=== PATIENT | female | born 1975 | race American Indian/Alaskan Native ===

== ENCOUNTER 2019-03-08 05:32 | Emergency (ER) | payer SELFPAY ==
--- NOTE | 2019-03-08 09:05 | Emergency Department Report ---
ED Back Pain/Injury HPI - General Chief Complaint: Back Pain/Injury Stated Complaint: MAJOR BACK PAIN/PAIN UPPER LEFT ARM Time Seen by Provider: 03/08/19 08:46 Source: patient Limitations: No Limitations - History of Present Illness Initial Comments: 44-year-old -[place] female patient complains of left lower back pain radiating down her leg 2 days. Patient states she normally gets low back pain around this time monthly before her menstrual cycle begins, however states this pain is different from her norm in that it is more intense and it radiates down her left leg. She denies any back injuries, numbness/tingling/weakness in her limbs, loss of bladder/bowel control, or inability to ambulate. He admits to frequent heavy lifting of items at her job. Patient states Tylenol and icy hot are not working. She rates her pain as a 9/10 in severity and states it is difficult to lie down flat. Worsens with ambulation also. MD Complaint: back pain - Related Data Previous Rx's Medication Instructions Recorded Last Taken Type Diclofenac Sodium 50 mg PO TID PRN #21 tablet. 03/08/19 Unknown Rx methOCARBAMOL [Robaxin TAB] 1,500 mg PO Q8H PRN #30 tablet 03/08/19 Unknown Rx predniSONE [Deltasone] 20 mg PO TID #9 tab 03/08/19 Unknown Rx Allergies Allergy/AdvReac Type Severity Reaction Status Date / Time No Known Allergies Allergy Unverified 03/08/19 06:28 ED Review of Systems ROS: Stated complaint: MAJOR BACK PAIN/PAIN UPPER LEFT ARM Other details as noted in HPI Comment: All other systems reviewed and negative Constitutional: fever Musculoskeletal: as per HPI ED Past Medical Hx - Past Medical History Previous Medical History?: No - Surgical History Past Surgical History?: Yes Additional Surgical History: C-Sec - Social History Smoking Status: Never Smoker Substance Use Type: None - Medications Home Medications: Home Medications Medication Instructions Recorded Confirmed Last Taken Type Diclofenac Sodium 50 mg PO TID PRN #21 tablet. 03/08/19 Unknown Rx methOCARBAMOL [Robaxin TAB] 1,500 mg PO Q8H PRN #30 tablet 03/08/19 Unknown Rx predniSONE [Deltasone] 20 mg PO TID #9 tab 03/08/19 Unknown Rx ED Physical Exam - General Limitations: No Limitations General appearance: alert, in no apparent distress - Head Head exam: Present: atraumatic, normocephalic - Eye Eye exam: Present: normal appearance - Neck Neck exam: Present: normal inspection, full ROM - Respiratory Respiratory exam: Absent: respiratory distress - Cardiovascular Cardiovascular Exam: Present: regular rate - Extremities Exam Extremities exam: Present: full ROM. Absent: pedal edema, joint swelling, calf tenderness - Back Exam Back exam: Present: paraspinal tenderness. Absent: CVA tenderness (R), CVA tenderness (L), vertebral tenderness (left lower lumbar and sacroiliac) - Expanded Back Exam Expanded Back exam: Positive Straight Leg Raise: Left - Neurological Exam Neurological exam: Present: alert, oriented X3, normal gait. Absent: motor sensory deficit - Expanded Neurological Exam Expanded Sensory exam: Upper Extremity Light Touch: Normal, Lower Extremity Light Touch: Normal Motor strength exam: RUE: 5, LUE: 5, RLE: 5, LLE: 5 - Psychiatric Psychiatric exam: Present: normal affect, normal mood - Skin Skin exam: Present: warm, dry, intact, normal color. Absent: rash ED Course Vital Signs 03/08/19 05:55 Temperature 98.3 F Pulse Rate 77 Respiratory 18 Rate Blood Pressure 151/92 O2 Sat by Pulse 98 Oximetry ED Medical Decision Making - Medical Decision Making 44-year-old -[place] female patient complains of left lower back pain radiating down her leg 2 days. She denies any red flag symptoms. Positive left straight leg raise test on exam. Patient states pain has significantly improved with its given here in ED. Ambulation is normal. Patient is stable for discharge home. Recommend follow-up with physical therapy as needed. Discussed strict return precautions in detail with patient who verbalizes understanding. Critical care attestation.: If time is entered above; I have spent that time in minutes in the direct care of this critically ill patient, excluding procedure time. ED Disposition Clinical Impression: Left sided sciatica Disposition: DC-01 TO HOME OR SELFCARE Is pt being admited?: No Instructions: Sciatica (ED) Additional Instructions: If your symptoms persist, please follow-up with a physical therapist. If you develop any new or worsening symptoms as discussed, seek immediate emergency treatment Prescriptions: predniSONE [Deltasone] 20 mg PO TID #9 tab Diclofenac Sodium 50 mg PO TID PRN #21 tablet.dr PRN Reason: pain methOCARBAMOL [Robaxin TAB] 1,500 mg PO Q8H PRN #30 tablet PRN Reason: muscle tightness/spasm Forms: Work/School Release Form(ED)
[2019-03-08] MEDS ORDERED: oxyCODONE 5 MG TAB PO ONE (09:06)
[2019-03-08] MEDS ORDERED: DEXAMETHASONE 4 MG TAB PO ONE (09:06)
[2019-03-08] MEDS ORDERED: KETOROLAC 60 MG/2 ML INJ IM ONE (09:06)
[2019-03-08] MEDS ORDERED: oxyCODONE /ACETAMINOPHEN 5-325MG TAB PO ONE (09:25)
[2019-03-08 11:00] VITALS: BP 150/86
== END 2019-03-08 10:58 | disposition home or self-care (01) ==
LOC: ED 05:32
DX: M54.42 Lumbago with sciatica, left side (principal)
CPT/HCPCS: 96372; 99282; J1885; J8540